=== PATIENT | female | born 1955 | race Caucasian/White ===

== ENCOUNTER 2018-07-01 19:30 | Emergency (ER) | payer OTHER ==
--- NOTE | 2018-07-01 19:38 | EDPHY ---
H & P Time Seen by Provider: 07/01/18 19:32 HPI/ROS: CHIEF COMPLAINT: Sternal pain HISTORY OF PRESENT ILLNESS: The patient is a 62-year-old female who tripped and fell in her hotel room. She landed on her chest on the carpet and is complaining of severe sternal tenderness. She has a history of breast cancer with mastectomy on the left and no implant. She also complains of mild left knee pain as well. She is ambulatory. She denies arm injury. She denies head or neck injury. This happened just prior to arrival. She was brought by ambulance. Severity: Severe Modifying factors: Moderate improvement with fentanyl by EMS REVIEW OF SYSTEMS: Constitutional: denies: chills, fever, recent illness, recent injury EENTM: denies: blurred vision, double vision, nose congestion Respiratory: denies: cough, shortness of breath Cardiac: See HPI denies: irregular heart rate, lightheadedness, palpitations Gastrointestinal/Abdominal: denies: abdominal pain, diarrhea, nausea, vomiting, blood streaked stools Genitourinary: denies: dysuria, frequency, hematuria, pain Musculoskeletal: See HPI Skin: denies: lesions, rash, jaundice, bruising Neurological: denies: headache, numbness, paresthesia, tingling, dizziness, weakness Hematologic/Lymphatic: denies: blood clots, easy bleeding, easy bruising Immunologic/allergic: denies: HIV/AIDS, transplant 10 systems reviewed and negative except as noted EXAM: GENERAL: Well-appearing, well-nourished and in no acute distress. HEAD: Atraumatic, normocephalic. EYES: Pupils equal round and reactive to light, extraocular movements intact, sclera anicteric, conjunctiva are normal. ENT: TMs normal, nares patent, oropharynx clear without exudates. Moist mucous membranes. NECK: Normal range of motion, supple without lymphadenopathy or JVD. LUNGS: Breath sounds clear to auscultation bilaterally and equal. No wheezes rales or rhonchi. HEART: Exquisite tenderness to sternum, Regular rate and rhythm without murmurs , rubs or gallops. ABDOMEN: Soft, nontender, normoactive bowel sounds. No guarding, no rebound. No masses appreciated. BACK: No CVA tenderness, no spinal tenderness, step-offs or deformities EXTREMITIES: Small abrasion to left knee. No swelling or deformity. Normal range of motion, no pitting or edema. No clubbing or cyanosis. NEUROLOGICAL: Cranial nerves II through XII grossly intact. Normal speech, normal gait. 5/5 strength, normal movement in all extremities, normal sensation , normal reflexes PSYCH: Normal mood, normal affect. SKIN: Warm, dry, normal turgor, no visible rashes or lesions. Source: Patient, Family, EMS Exam Limitations: No limitations - Medical/Surgical History Hx Asthma: No Hx Chronic Respiratory Disease: No Hx Diabetes: No Hx Cardiac Disease: No Hx Renal Disease: No Hx Cirrhosis: No Hx Alcoholism: No Hx HIV/AIDS: No Other PMH: Breast cancer post mastectomy - Family History Significant Family History: No pertinent family hx - Social History Smoking Status: Former smoker Alcohol Use: Sober Drug Use: None Constitutional: Initial Vital Signs Heart Rate 79 07/01/18 19:41 Respiratory Rate 18 07/01/18 19:41 Blood Pressure 155/108 H 07/01/18 19:41 O2 Sat (%) 92 07/01/18 19:41 O2 Delivery Mode Room Air O2 (L/minute) 37.1 Allergies/Adverse Reactions: adhesive tape Allergy (Verified 07/01/18 19:41) morphine Allergy (Verified 07/01/18 19:41) Medical Decision Making - Diagnostics Imaging Results: Imaging Impressions Chest CT 07/01/18 19:35 Impression: No evidence for sternal fracture. Postsurgical changes of left mastectomy and reconstructive surgery. No acute cardiopulmonary abnormality. Mild chronic anterior wedge compression deformity T12. Results called and discussed with LIZETT CLIFTON at 07/01/2018 20:38. Knee X-Ray 07/01/18 19:35 Impression: Mild early degenerative change medial compartment left knee. Imaging: Discussed imaging studies w/ brake operator heavy duty Radiologist ED Course/Re-evaluation: 9:00 p.m. patient is reassured with CT results. She is strongly requesting pain medication. She states that Tylenol and ibuprofen have not been working for her. Will give her a take-home pack of Vicodin but no prescription. She is ambulating without difficulty. Differential Diagnosis: Partial list of the Differential diagnosis considered include but were not limited to; chest contusion, fracture , knee injury and although unlikely based on the history and physical exam, I also considered pulmonary contusion, vascular injury, cardiac injury, pneumothorax. - Data Points Laboratory Results: 07/01/18 19:51 POC Hgb 13.3 gm/dL gm/dL (12.6-16.3) POC Hct 39 % % (38-47) POC Sodium 142 mEq/L mEq/L (135-145) POC Potassium 3.9 mEq/L mEq/L (3.3-5.0) POC Chloride 105 mEq/L mEq/L (97-110) POC Total CO2 25 mEq/L mEq/L (22-31) POC BUN 23 mg/dL mg/dL (7-23) POC Creatinine 1.3 mg/dL H mg/dL (0.6-1.0) POC Glucose 116 mg/dL H mg/dL (70-100) Medications Given: Discontinued Medications Hydrocodone Bitart/Acetaminophen ([place] 5/325mg Prepack#6) 1 btl TAKEHOME EDNOW ONE Stop: 07/01/18 21:09 Last Admin: 07/01/18 21:14 Dose: 1 btl Hydromorphone HCl (Dilaudid) 0.5 mg IVP EDNOW ONE Stop: 07/01/18 20:01 Last Admin: 07/01/18 20:06 Dose: 0.5 mg Point of Care Test Results: Chemistry 07/01/18 19:51 POC Sodium 142 mEq/L mEq/L (135-145) POC Potassium 3.9 mEq/L mEq/L (3.3-5.0) POC Chloride 105 mEq/L mEq/L (97-110) POC Total CO2 25 mEq/L mEq/L (22-31) POC BUN 23 mg/dL mg/dL (7-23) POC Creatinine 1.3 mg/dL H mg/dL (0.6-1.0) POC Glucose 116 mg/dL H mg/dL (70-100) ISTAT H&H 07/01/18 19:51 POC Hgb 13.3 gm/dL gm/dL (12.6-16.3) POC Hct 39 % % (38-47) Departure - Departure Disposition: Home, Routine, Self-Care Clinical Impression: Chest wall contusion Qualifiers: Encounter type: initial encounter Laterality: unspecified laterality Qualified Code(s): S20.219A - Contusion of unspecified front wall of thorax, initial encounter Condition: Fair Instructions: Hydrocodone/Acetaminophen (By mouth), Chest Wall Pain (ED) Referrals: Patient,NotPresent [Unknown] - As per Instructions Radha Rodgers MD [Medical Doctor] - As per Instructions
[2018-07-01] MEDS ORDERED: HYDROmorphONE/DILAUDID 2 MG/ML INJ IVP ONE (20:00)
[2018-07-01] MEDS ORDERED: IOPAMIDOL (ISOVUE-300) 100 ML BTL ONE (20:09)
[2018-07-01] MEDS ORDERED: HYDROCOD/APAP 5/325 PREPACK#6 BTL TAKEHOME ONE (21:08)
[2018-07-01 21:17] VITALS: BP 144/70
== END 2018-07-01 21:25 | disposition home or self-care (01) ==
DX: S20.219A Contusion of unspecified front wall of thorax, initial encounter (principal); W01.0XXA Fall on same level from slipping, tripping and stumbling without subsequent striking against object, initial encounter; Y92.59 Other trade areas as the place of occurrence of the external cause
CPT/HCPCS: 82435-PO; 82565-PO; 82947-PO; 84132-PO; 84295-PO; 84520-PO; 85014-ER; 96374; J1170; Q9967